=== PATIENT | female | born 1950 | race Caucasian/White ===

== ENCOUNTER 2023-08-18 07:09 | Emergency (ER) | payer MEDICARE, OTHER ==
[2023-08-18 08:24] LABS: Influenza A by NAA Not Detected (NotDetected); Influenza B by NAA Not Detected (NotDetected); RSV by NAA Not Detected (NotDetected); SARS-CoV-2 NAA Rapid Test Not Detected (NotDetected)
[2023-08-18] MEDS ORDERED: Doxycycline 100 MG CAP ONE (08:40)
[2023-08-18] MEDS ORDERED: predniSONE 20 MG TAB ONE (08:40)
[2023-08-18] MEDS ORDERED: Metoprolol Tartrate 25 MG TAB PO SCH (10:30)
== END 2023-08-18 09:56 | disposition home or self-care (01) ==
LOC: BURERS 07:09
DX: I48.91 Unspecified atrial fibrillation (principal); J22 Unspecified acute lower respiratory infection; R94.31 Abnormal electrocardiogram [ECG] [EKG]
CPT/HCPCS: 0241U; 71045; 87081; 87430; 93005; J7512